=== PATIENT | female | born 1995 | race Caucasian/White ===

== ENCOUNTER → 2016-12-03 | Outpatient (CLI) | payer BC ==
[~2016-12-03] MED LIST: BUPR15TA PO; CLIN300C2 PO; CODE30TA3 PO; EFFE75CA75 PO; IBUP200C PO; LORTAB ELIXER PO; NEXP68IM SC; PERC5TAB6 PO
== END ==
LOC: M LAB 16:02
PROVIDERS: ATTEND Internal Medicine Gastroenterology
DX: K58.0 Irritable bowel syndrome with diarrhea (principal)

== ENCOUNTER 2016-12-09 10:54 | Emergency (ER) | payer BC ==
--- NOTE | 2016-12-09 12:00 | EDDOCDS ---
Physician Documentation [facility] Name: Jackie Ponce Age: 21 yrs Sex: Female : 1995 Arrival Date: 12/09/2016 Time: 10:54 Bed TR8 Private MD: Ana Laura Orlando Disposition: 12/09/16 11:51 Discharged to Home/Self Care. Impression: Encounter for issue of repeat prescription, Other idiopathic peripheral autonomic neuropathy. - Condition is Stable. - Discharge Instructions: Medicine Refill at the Emergency Department, Neuropathic Pain. - Prescriptions for Neurontin 300 mg Oral Capsule - take 1 capsule by ORAL route every 8 hours; 42 capsule. - Medication Reconciliation, Local Pharmacy Hours form. - Follow up: Private Physician; When: As previously arranged; Reason: Recheck today's complaints. - Problem is chronic. - Symptoms are unchanged. Historical: - Allergies: No known drug Allergies; - Home Meds: 1. diazepam 10 mg Oral tab 1 tab as needed (Last dose: 12/09/2016 06:30) 2. Nexium 80mg Oral cpDR 1 cap 2 times per day (Last dose: 12/09/2016 06:30) 3. Seroquel 25 mg Oral tab 1 tab nightly (Last dose: 12/06/2016) 4. topiramate 50 mg oral tab 1 tab twice a day (Last dose: 12/09/2016 06:30) 5. valacyclovir 500 mg Oral tab 1 tab once daily (Last dose: 12/08/2016) 6. gabapentin 100 mg Oral cap 3 caps 3 times per day - PMHx: Anxiety; GERD; Headaches; Herpes; - PSHx: Parathyroidectomy; Tonsillectomy; - Social history: Smoking status: Patient states was never smoker of tobacco. No barriers to communication noted, The patient speaks fluent Tamazight, Speaks appropriately for age, . - Family history: Not pertinent. - : The pt / caregiver states he / she is not on anticoagulants. Home medication list is obtained from the patient. - Exposure Risk Screening:: None identified. Vital Signs: 12/09 10:56 BP 135 / 70; Pulse 56; Resp 18; Temp 97.1(O); Pulse Ox 100% on R/A; Weight 63.5 kg / ct3 139.99 lbs (R); Height 5 ft. 3 in. (160.02 cm) (R); Pain 07/09; 10:56 Body Mass Index 24.80 (63.50 kg, 160.02 cm) ct3 MDM: 11:56 Financial registration complete. mm15 Signatures: Misael Persaud PA-C PA-C ar2 Amparo Lan RN RN hs1 Chase Lyons mm15 Maira Cortés RN RN ms18 MTDD
--- NOTE | 2016-12-09 12:00 | EDDOCDS ---
Nurse's Notes [facility] Name: Jackie Ponce Age: 21 yrs Sex: Female : 1995 Arrival Date: 12/09/2016 Time: 10:54 Bed TR8 Private MD: Ana Laura Orlando Diagnosis: Encounter for issue of repeat prescription;Other idiopathic peripheral autonomic neuropathy Presentation: 12/09 11:03 Presenting complaint: Patient states: still having nerve pain in arms and cannot get hs1 into doctor until the . Patient states she still is having pains. Patient states has pain management first appointment the and changed her medication that was prescribed here - gabapentin. Adult Sepsis Screening: The patient does not have new or worsening altered mentation. Patient's respiratory rate is less than 22. Systolic blood pressure is greater than 100. Patient has a qSOFA score of 0- Negative Sepsis Screen. Suicide/Homicide risk assessment- the patient denies having any suicidal and/or homicidal ideations and does not present with any other emotional, behavioral or mental health complaints. Status: Patient is not a automobile service advisor or dependent. Transition of care: patient was not received from another setting of care. 11:03 Acuity: KOJO Level 3 hs1 11:03 Method Of Arrival: Walkin/Carried/Asstd hs1 Triage Assessment: 11:07 General: Appears in no apparent distress, Behavior is appropriate for age, cooperative. hs1 Pain: Location: right arm Pain currently is 8 out of 10 on a pain scale. Pain: Quality of pain is described as patient states that it feels like a blood pressure cuff stuck on her arm. HIV screening NA for this visit Offered previously. Derm: Musculoskeletal: Range of motion intact in all extremities. Historical: - Allergies: No known drug Allergies; - Home Meds: 1. diazepam 10 mg Oral tab 1 tab as needed (Last dose: 12/09/2016 06:30) 2. Nexium 80mg Oral cpDR 1 cap 2 times per day (Last dose: 12/09/2016 06:30) 3. Seroquel 25 mg Oral tab 1 tab nightly (Last dose: 12/06/2016) 4. topiramate 50 mg oral tab 1 tab twice a day (Last dose: 12/09/2016 06:30) 5. valacyclovir 500 mg Oral tab 1 tab once daily (Last dose: 12/08/2016) 6. gabapentin 100 mg Oral cap 3 caps 3 times per day - PMHx: Anxiety; GERD; Headaches; Herpes; - PSHx: Parathyroidectomy; Tonsillectomy; - Social history: Smoking status: Patient states was never smoker of tobacco. No barriers to communication noted, The patient speaks fluent Urdu, Speaks appropriately for age, . - Family history: Not pertinent. - : The pt / caregiver states he / she is not on anticoagulants. Home medication list is obtained from the patient. - Exposure Risk Screening:: None identified. Screenin:09 Screening information is obtained from the patient. Fall risk: No risks identified. hs1 Assistance ADL's: requires no assistance with activities of daily living. Abuse/DV Screen: The patient / caregiver reports he/she is: not in a situation that causes fear, pain or injury. Nutritional screening: No deficits noted. Advance Directives: There is no active DNR order. home support is adequate. Assessment: 11:59 General: Appears in no apparent distress, comfortable, Behavior is appropriate for age, ms18 cooperative, pleasant. Neurological: Level of Consciousness is awake, alert, obeys commands, Oriented to person, place, time. Respiratory: No deficits noted. Derm: Skin is pink, warm & dry. Musculoskeletal: Circulation, motion, and sensation intact Range of motion intact in all extremities. No deformity noted. Vital Signs: 10:56 BP 135 / 70; Pulse 56; Resp 18; Temp 97.1(O); Pulse Ox 100% on R/A; Weight 63.5 kg (R); ct3 Height 5 ft. 3 in. (160.02 cm) (R); Pain 8/10; 10:56 Body Mass Index 24.80 (63.50 kg, 160.02 cm) ct3 Vitals: 10:56 Log In Time: December 09, 2016 at 10:53. ct3 ED Course: 10:55 Patient visited by Marizol Martinez PCA. ct3 10:55 Ana Laura Orlando is Private Physician. ct3 10:55 Patient moved to Waiting ct3 10:57 Patient moved to Pre RCE ct3 11:05 Triage Initiated hs1 11:10 Patient moved to Triage 2 hs1 11:29 [facility] ar2 11:29 Debora Hoyt MD is Attending Physician. ar2 11:39 Patient visited by Misael Persaud PA-C. ar2 11:58 Patient moved to TR8 ms18 11:59 The patient / caregiver is instructed regarding the plan of care and ED course. Patient ms18 has correct armband on for positive identification. Property sent home with patient. :Personal belongings accompany Pt. 11:59 No IV's were initiated during this patient's visit. No procedures done that require ms18 assistance. Order Results: There are currently no results for this order. Outcome: 11:51 Discharge ordered by Provider. ar2 11:59 Discharge Assessment: Patient awake, alert and oriented x 3. No cognitive and/or ms18 functional deficits noted. Patient verbalized understanding of disposition instructions. patient administered narcotics - no. The following High Risk Discharge criteria are identified: None. Discharged to home ambulatory. Condition: good Condition: stable Condition: unchanged. Discharge instructions given to patient, Instructed on discharge instructions, follow up and referral plans. medication usage, Demonstrated understanding of instructions, medications, Pt was receptive of discharge instructions/ teaching. Prescriptions given X 1. No special radiology studies were completed. 12:00 Patient left the ED. ms18 Signatures: Misael Persaud PA-C PA-C ar2 Amparo Lan RN RN hs1 Marizol Martinez, PRODUCT SALES ENGINEER PRODUCT SALES ENGINEER ct3 Maira CortésRN RN ms18 MTDD
--- NOTE | 2016-12-11 13:01 | EDDOCDS ---
Physician Documentation [facility] Name: Jackie Ponce Age: 21 yrs Sex: Female : 1995 Arrival Date: 12/09/2016 Time: 10:54 Bed TR8 Private MD: Ana Laura Orlando Disposition: 12/09/16 11:51 Discharged to Home/Self Care. Impression: Encounter for issue of repeat prescription, Other idiopathic peripheral autonomic neuropathy. - Condition is Stable. - Discharge Instructions: Medicine Refill at the Emergency Department, Neuropathic Pain. - Prescriptions for Neurontin 300 mg Oral Capsule - take 1 capsule by ORAL route every 8 hours; 42 capsule. - Medication Reconciliation, Local Pharmacy Hours form. - Follow up: Private Physician; When: As previously arranged; Reason: Recheck today's complaints. - Problem is chronic. - Symptoms are unchanged. Historical: - Allergies: No known drug Allergies; - Home Meds: 1. diazepam 10 mg Oral tab 1 tab as needed (Last dose: 12/09/2016 06:30) 2. Nexium 80mg Oral cpDR 1 cap 2 times per day (Last dose: 12/09/2016 06:30) 3. Seroquel 25 mg Oral tab 1 tab nightly (Last dose: 12/06/2016) 4. topiramate 50 mg oral tab 1 tab twice a day (Last dose: 12/09/2016 06:30) 5. valacyclovir 500 mg Oral tab 1 tab once daily (Last dose: 12/08/2016) 6. gabapentin 100 mg Oral cap 3 caps 3 times per day - PMHx: Anxiety; GERD; Headaches; Herpes; - PSHx: Parathyroidectomy; Tonsillectomy; - Social history: Smoking status: Patient states was never smoker of tobacco. No barriers to communication noted, The patient speaks fluent Macedonian, Speaks appropriately for age, . - Family history: Not pertinent. - : The pt / caregiver states he / she is not on anticoagulants. Home medication list is obtained from the patient. - Exposure Risk Screening:: None identified. Vital Signs: 12/09 10:56 BP 135 / 70; Pulse 56; Resp 18; Temp 97.1(O); Pulse Ox 100% on R/A; Weight 63.5 kg / ct3 139.99 lbs (R); Height 5 ft. 3 in. (160.02 cm) (R); Pain 07/09; 10:56 Body Mass Index 24.80 (63.50 kg, 160.02 cm) ct3 MDM: 11:56 Financial registration complete. mm15 12:40 [facility] Payment Agreement was scanned into [employer] and attached to record. mm15 14:49 T-Sheet-- Draft Copy was scanned into [employer] and attached to record. gb Signatures: Lakia Lucas, Reg Reg gb Misael Persaud PA-C PA-C ar2 Amparo Lan RN RN hs1 Chase Lyons mm15 Maira Cortés RN RN ms18 The chart was reviewed and I authenticate all verbal orders and agree with the evaluation and treatment provided.Attachments: 12:40 [facility] Payment Agreement mm15 14:49 T-Sheet-- Draft Copy gb Chart Complete MTDD
--- NOTE | 2016-12-11 13:01 | EDDOCDS ---
Nurse's Notes [facility] Name: Jackie Ponce Age: 21 yrs Sex: Female : 1995 Arrival Date: 12/09/2016 Time: 10:54 Bed TR8 Private MD: Ana Laura Orlando Diagnosis: Encounter for issue of repeat prescription;Other idiopathic peripheral autonomic neuropathy Presentation: 12/09 11:03 Presenting complaint: Patient states: still having nerve pain in arms and cannot get hs1 into doctor until the . Patient states she still is having pains. Patient states has pain management first appointment the and changed her medication that was prescribed here - gabapentin. Adult Sepsis Screening: The patient does not have new or worsening altered mentation. Patient's respiratory rate is less than 22. Systolic blood pressure is greater than 100. Patient has a qSOFA score of 0- Negative Sepsis Screen. Suicide/Homicide risk assessment- the patient denies having any suicidal and/or homicidal ideations and does not present with any other emotional, behavioral or mental health complaints. Status: Patient is not a park services specialist or dependent. Transition of care: patient was not received from another setting of care. 11:03 Acuity: KOJO Level 3 hs1 11:03 Method Of Arrival: Walkin/Carried/Asstd hs1 Triage Assessment: 11:07 General: Appears in no apparent distress, Behavior is appropriate for age, cooperative. hs1 Pain: Location: right arm Pain currently is 8 out of 10 on a pain scale. Pain: Quality of pain is described as patient states that it feels like a blood pressure cuff stuck on her arm. HIV screening NA for this visit Offered previously. Derm: Musculoskeletal: Range of motion intact in all extremities. Historical: - Allergies: No known drug Allergies; - Home Meds: 1. diazepam 10 mg Oral tab 1 tab as needed (Last dose: 12/09/2016 06:30) 2. Nexium 80mg Oral cpDR 1 cap 2 times per day (Last dose: 12/09/2016 06:30) 3. Seroquel 25 mg Oral tab 1 tab nightly (Last dose: 12/06/2016) 4. topiramate 50 mg oral tab 1 tab twice a day (Last dose: 12/09/2016 06:30) 5. valacyclovir 500 mg Oral tab 1 tab once daily (Last dose: 12/08/2016) 6. gabapentin 100 mg Oral cap 3 caps 3 times per day - PMHx: Anxiety; GERD; Headaches; Herpes; - PSHx: Parathyroidectomy; Tonsillectomy; - Social history: Smoking status: Patient states was never smoker of tobacco. No barriers to communication noted, The patient speaks fluent Upper Sorbian, Speaks appropriately for age, . - Family history: Not pertinent. - : The pt / caregiver states he / she is not on anticoagulants. Home medication list is obtained from the patient. - Exposure Risk Screening:: None identified. Screenin:09 Screening information is obtained from the patient. Fall risk: No risks identified. hs1 Assistance ADL's: requires no assistance with activities of daily living. Abuse/DV Screen: The patient / caregiver reports he/she is: not in a situation that causes fear, pain or injury. Nutritional screening: No deficits noted. Advance Directives: There is no active DNR order. home support is adequate. Assessment: 11:59 General: Appears in no apparent distress, comfortable, Behavior is appropriate for age, ms18 cooperative, pleasant. Neurological: Level of Consciousness is awake, alert, obeys commands, Oriented to person, place, time. Respiratory: No deficits noted. Derm: Skin is pink, warm & dry. Musculoskeletal: Circulation, motion, and sensation intact Range of motion intact in all extremities. No deformity noted. Vital Signs: 10:56 BP 135 / 70; Pulse 56; Resp 18; Temp 97.1(O); Pulse Ox 100% on R/A; Weight 63.5 kg (R); ct3 Height 5 ft. 3 in. (160.02 cm) (R); Pain 8/10; 10:56 Body Mass Index 24.80 (63.50 kg, 160.02 cm) ct3 Vitals: 10:56 Log In Time: December 09, 2016 at 10:53. ct3 ED Course: 10:55 Patient visited by Marizol Martinez PCA. ct3 10:55 Ana Laura Orlando is Private Physician. ct3 10:55 Patient moved to Waiting ct3 10:57 Patient moved to Pre RCE ct3 11:05 Triage Initiated hs1 11:10 Patient moved to Triage 2 hs1 11:29 [facility] ar2 11:29 Debora Hoyt MD is Attending Physician. ar2 11:39 Patient visited by Misael Persaud PA-C. ar2 11:58 Patient moved to TR8 ms18 11:59 The patient / caregiver is instructed regarding the plan of care and ED course. Patient ms18 has correct armband on for positive identification. Property sent home with patient. :Personal belongings accompany Pt. 11:59 No IV's were initiated during this patient's visit. No procedures done that require ms18 assistance. 12:40 [facility] Payment Agreement was scanned into [employer] and attached to record. mm15 14:49 T-Sheet-- Draft Copy was scanned into [employer] and attached to record. gb Order Results: There are currently no results for this order. Outcome: 11:51 Discharge ordered by Provider. ar2 11:59 Discharge Assessment: Patient awake, alert and oriented x 3. No cognitive and/or ms18 functional deficits noted. Patient verbalized understanding of disposition instructions. patient administered narcotics - no. The following High Risk Discharge criteria are identified: None. Discharged to home ambulatory. Condition: good Condition: stable Condition: unchanged. Discharge instructions given to patient, Instructed on discharge instructions, follow up and referral plans. medication usage, Demonstrated understanding of instructions, medications, Pt was receptive of discharge instructions/ teaching. Prescriptions given X 1. No special radiology studies were completed. 12:00 Patient left the ED. ms18 Signatures: Lakia Lucas, Reg Reg gb Misael Persaud PA-C PA-C ar2 Amparo Lan, RN RN hs1 Marizol Martinez, CLOTH PICKER CLOTH PICKER ct3 Chase Lyons mm15 Maira Cortés,HARDY RN ms18 Chart Complete MTDD
--- NOTE | 2016-12-11 13:01 | EDDOCDS ---
Physician Documentation [facility] Name: Jackie Ponce Age: 21 yrs Sex: Female : 1995 Arrival Date: 12/09/2016 Time: 10:54 Bed TR8 Private MD: Ana Laura Orlando Disposition: 12/09/16 11:51 Discharged to Home/Self Care. Impression: Encounter for issue of repeat prescription, Other idiopathic peripheral autonomic neuropathy. - Condition is Stable. - Discharge Instructions: Medicine Refill at the Emergency Department, Neuropathic Pain. - Prescriptions for Neurontin 300 mg Oral Capsule - take 1 capsule by ORAL route every 8 hours; 42 capsule. - Medication Reconciliation, Local Pharmacy Hours form. - Follow up: Private Physician; When: As previously arranged; Reason: Recheck today's complaints. - Problem is chronic. - Symptoms are unchanged. Historical: - Allergies: No known drug Allergies; - Home Meds: 1. diazepam 10 mg Oral tab 1 tab as needed (Last dose: 12/09/2016 06:30) 2. Nexium 80mg Oral cpDR 1 cap 2 times per day (Last dose: 12/09/2016 06:30) 3. Seroquel 25 mg Oral tab 1 tab nightly (Last dose: 12/06/2016) 4. topiramate 50 mg oral tab 1 tab twice a day (Last dose: 12/09/2016 06:30) 5. valacyclovir 500 mg Oral tab 1 tab once daily (Last dose: 12/08/2016) 6. gabapentin 100 mg Oral cap 3 caps 3 times per day - PMHx: Anxiety; GERD; Headaches; Herpes; - PSHx: Parathyroidectomy; Tonsillectomy; - Social history: Smoking status: Patient states was never smoker of tobacco. No barriers to communication noted, The patient speaks fluent Greek, Speaks appropriately for age, . - Family history: Not pertinent. - : The pt / caregiver states he / she is not on anticoagulants. Home medication list is obtained from the patient. - Exposure Risk Screening:: None identified. Vital Signs: 12/09 10:56 BP 135 / 70; Pulse 56; Resp 18; Temp 97.1(O); Pulse Ox 100% on R/A; Weight 63.5 kg / ct3 139.99 lbs (R); Height 5 ft. 3 in. (160.02 cm) (R); Pain 07/09; 10:56 Body Mass Index 24.80 (63.50 kg, 160.02 cm) ct3 MDM: 11:56 Financial registration complete. mm15 12:40 [facility] Payment Agreement was scanned into [employer]. and attached to record. mm15 14:49 T-Sheet-- Draft Copy was scanned into [employer]. and attached to record. gb Signatures: Lakia Lucas, Reg Reg gb Misael Persaud PA-C PA-C ar2 Amparo Lan RN RN hs1 Chase Lyons mm15 Maira Cortés RN RN ms18 The chart was reviewed and I authenticate all verbal orders and agree with the evaluation and treatment provided.Attachments: 12:40 [facility] Payment Agreement mm15 14:49 T-Sheet-- Draft Copy gb Chart Complete MTDD
== END 2016-12-09 12:00 | disposition home or self-care (01) ==
LOC: M ED 10:54
DX: Z76.0 Encounter for issue of repeat prescription (principal); G60.9 Hereditary and idiopathic neuropathy, unspecified; F41.9 Anxiety disorder, unspecified; K21.9 Gastro-esophageal reflux disease without esophagitis; R51 Headache; B00.9 Herpesviral infection, unspecified; Z79.899 Other long term (current) drug therapy

== ENCOUNTER → 2016-12-29 | Outpatient (CLI) | payer BC ==
[~2016-12-29] VITALS: Ht 160 cm; Wt 61.7 kg
[~2016-12-29] MED LIST changes: +ACYC1CAP8 PO; +DIAZ10TA2 PO; +GABA-283 PO; +LIDOCAINE 2% INJ 100 MG/5 ML SDV (FOR ANES.) As Ordered ONE; +NEXI40CA PO; +NS 1,000 ML IV SCH; +PROPOFOL 200 MG/20 ML VIAL As Ordered ONE; +SERO1TAB3 PO; +TOPA50TA7 PO
--- NOTE | 2016-12-29 08:14 | ROOR ---
Patient Name: Jackie Ponce Procedure Date: 12/29/2016 8:06 AM Date of : 1995 Age: 21 Room: [facility] Gender: Female Note Status: Finalized Procedure: Upper GI endoscopy Indications: Epigastric abdominal pain Providers: Tadeo FLORES MD Referring MD: ALYSSA LEPE [facility] ALYSSA Goodwin Requesting Provider: Medicines: Monitored Anesthesia Care Complications: No immediate complications. Procedure: Pre-Anesthesia Assessment: - The heart rate, respiratory rate, oxygen saturations, blood pressure, adequacy of pulmonary ventilation, and response to care were monitored throughout the procedure. The Endoscope was introduced through the mouth, and advanced to the second part of duodenum. The upper GI endoscopy was accomplished without difficulty. The patient tolerated the procedure well. Findings: The esophagus was normal. The stomach was normal. The examined duodenum was normal. Impression: - Normal esophagus. - Normal stomach. - Normal examined duodenum. - No specimens collected. Recommendation: - Continue present medications. Tadeo Flores MD Tadeo FLORES MD 12/29/2016 8:13:52 AM This report has been signed electronically. Number of Addenda: 0 Note Initiated On: 12/29/2016 8:06 AM Estimated Blood Loss: Estimated blood loss: none.
--- NOTE | 2016-12-29 08:22 | ROOR ---
Patient Name: Jackie Ponce Procedure Date: 12/29/2016 8:07 AM Date of : 1995 Age: 21 Room: OP02 Gender: Female Note Status: Finalized Procedure: Colonoscopy Indications: Generalized abdominal pain, Irritable bowel syndrome with constipation Providers: Tadeo ELMORE MD Referring [facility] Provider: Medicines: Monitored Anesthesia Care Complications: No immediate complications. Procedure: Pre-Anesthesia Assessment: - The heart rate, respiratory rate, oxygen saturations, blood pressure, adequacy of pulmonary ventilation, and response to care were monitored throughout the procedure. The Colonoscope was introduced through the anus and advanced to 7 cm into the ileum. The colonoscopy was performed without difficulty. The patient tolerated the procedure well. The quality of the bowel preparation was good. Findings: The perianal and digital rectal examinations were normal. (Exam: Complete, Prep: Good or Excellent.) The terminal ileum appeared normal. The entire examined colon appeared normal on direct and retroflexion views. Impression: - (Exam: Complete, Prep: Good or Excellent.) - The examined portion of the ileum was normal. - The entire colon is normal on direct and retroflexion views. - No specimens collected. Recommendation: - Continue present medications. - Lactose free diet. Tadeo Elmore MD Tadeo ELMORE MD 12/29/2016 8:22:13 AM This report has been signed electronically. Number of Addenda: 0 Note Initiated On: 12/29/2016 8:07 AM Estimated Blood Loss: Estimated blood loss: none.
[2016-12-29 08:40] VITALS: BP 132/74
== END ==
LOC: M OPP 07:23
PROVIDERS: ATTEND Internal Medicine Gastroenterology
DX: R10.84 Generalized abdominal pain (principal); K58.1 Irritable bowel syndrome with constipation; R10.13 Epigastric pain; R12 Heartburn; F41.9 Anxiety disorder, unspecified; F32.9 Major depressive disorder, single episode, unspecified; G43.909 Migraine, unspecified, not intractable, without status migrainosus; E21.5 Disorder of parathyroid gland, unspecified; G62.9 Polyneuropathy, unspecified; G90.511 Complex regional pain syndrome I of right upper limb; K59.00 Constipation, unspecified; R19.7 Diarrhea, unspecified; Z91.030 Bee allergy status; Z79.899 Other long term (current) drug therapy

== ENCOUNTER → 2017-01-18 | Outpatient (REF) | payer BC ==
[~2017-01-18] MED LIST changes: -LIDOCAINE 2% INJ 100 MG/5 ML SDV (FOR ANES.) As Ordered ONE; -NS 1,000 ML IV SCH; -PROPOFOL 200 MG/20 ML VIAL As Ordered ONE
== END ==
LOC: M LAB REF 09:46
PROVIDERS: ATTEND Physician Assistant
DX: N39.0 Urinary tract infection, site not specified (principal)

== ENCOUNTER → 2017-01-29 | Outpatient (REF) | payer BC | LOC: M SFHCLERA 15:37 | PROVIDERS: ATTEND Nurse Practitioner Family | DX: J02.9 Acute pharyngitis, unspecified (principal) ==

== ENCOUNTER → 2017-02-09 | Outpatient (CLI) | payer BC ==
[2017-02-09 15:08] LABS: BASO % 0.4 % (0.0-1.0); EOS # 0.3 K/mm3 (0.0-0.50); EOS % 3.3 % (0.0-3.0); LARGE UNSTAINED CELL # 0.1 K/mm3 (0.0-0.4); LARGE UNSTAINED CELL % 0.9 % (0.0-4.0); LYMPH # 2.3 K/mm3 (1.5-6.5); LYMPH % 22.8 % (24.0-44.0); MEAN CORPUSCULAR HEMOGLOBIN 30.4 pg (27.0-33.0); MEAN CORPUSCULAR HGB CONC 34.4 g/dl (32.0-36.5); MEAN CORPUSCULAR VOLUME 88.2 fl (80.0-96.0); MONO # 0.4 K/mm3 (0.0-0.8); MONO % 4.2 % (0.0-5.0); NEUTROPHILS # 6.5 K/mm3 (1.8-7.7); NEUTROPHILS % 68.3 % (36.0-66.0); PLATELET COUNT, AUTOMATED 224 k/mm3 (150-450); RED CELL DISTRIBUTION WIDTH 12.7 % (11.5-14.5); WHITE BLOOD COUNT 9.5 K/mm3 (4.0-10.0)
[2017-02-09 15:43] LABS: ALBUMIN 3.8 GM/DL (3.2-5.2); ALBUMIN/GLOBULIN RATIO 1.23 (1.00-1.93); ALKALINE PHOSPHATASE 66 U/L (45-117); ALT/SGPT 23 U/L (12-78); ANION GAP 9 MEQ/L (8-16); AST/SGOT 14 U/L (15-37); BILIRUBIN,TOTAL 0.3 MG/DL (0.2-1.0); BLOOD UREA NITROGEN 10 MG/DL (7-18); CALCIUM LEVEL 8.8 MG/DL (8.5-10.1); CARBON DIOXIDE LEVEL 27 MEQ/L (21-32); CHLORIDE LEVEL 108 MEQ/L (98-107); FREE T4 0.77 NG/DL (0.76-1.46); GLOMERULAR FILTRATION RATE > 60.0 (>60); GLUCOSE, FASTING 79 MG/DL (70-105); POTASSIUM SERUM 4.1 MEQ/L (3.5-5.1); SODIUM LEVEL 144 MEQ/L (136-145); TOTAL PROTEIN 6.9 GM/DL (6.4-8.2)
== END ==
LOC: M LAB 14:37
PROVIDERS: ATTEND Physician Assistant
DX: R53.83 Other fatigue (principal)

== ENCOUNTER → 2017-03-01 | Outpatient (CLI) | payer BC ==
[~2017-03-01] MED LIST changes: +NEXP1IMP SC; -NEXP68IM SC
--- NOTE | 2017-03-01 16:57 | REP ---
Clinical: Trauma. Injury. Technique: Neutral and frog lateral views of the right hip. Findings: No acute fracture dislocation. Skeletal structures, joint spaces, and surrounding soft tissues are essentially normal for age. Impression: No acute fracture or dislocation. Signed by Rito Antonio MD 03/01/2017 04:49 P
== END ==
LOC: M LRY 16:12
PROVIDERS: ATTEND Physician Assistant
DX: S79.911A Unspecified injury of right hip, initial encounter (principal); X58.XXXA Exposure to other specified factors, initial encounter; Y92.89 Other specified places as the place of occurrence of the external cause; Y93.89 Activity, other specified; Y99.8 Other external cause status

== ENCOUNTER → 2017-05-12 | Outpatient (REF) | payer BC | LOC: M LAB REF 17:22 | PROVIDERS: ATTEND Physician Assistant | DX: N39.0 Urinary tract infection, site not specified (principal) ==

== ENCOUNTER → 2017-06-18 | Outpatient (CLI) | payer BC ==
[~2017-06-18] MED LIST changes: -ACYC1CAP8 PO; +ACYC200C8 PO; +BUPR150T3 PO; +DIAZ1CON PO; +HYDR2.5C TOP; -IBUP200C PO; +IBUP200C10 PO; +MOBI4TAB PO; +NUVAMIS2 EC; +PERC5TAB12 PO; -PERC5TAB6 PO; +PRED10TA2 PO; -TOPA50TA7 PO; +TOPA50TA8 PO; +ZOFR4TAB3 PO
--- NOTE | 2017-06-18 15:28 | REP ---
Focused right breast sonography: History: Right breast mass at 12 o'clock. Findings: Scanning of the right breast is performed from 11 o'clock to 1 o'clock. Heterogeneous fibroglandular background echotexture is seen. No cyst or mass is observed. No other finding. Impression: BIRADS category 1 negative focused right breast sonography. No change from prior study done December 2014. Clinical follow-up is advised. Signed by Olegario Granados MD 06/18/2017 04:42 P
== END ==
LOC: M RAD 14:11
PROVIDERS: ATTEND Physician Assistant Medical
DX: D48.61 Neoplasm of uncertain behavior of right breast (principal)

== ENCOUNTER → 2017-08-01 | Outpatient (REF) | payer BC | LOC: M LAB REF 17:19 | PROVIDERS: ATTEND Physician Assistant | DX: S80.862A Insect bite (nonvenomous), left lower leg, initial encounter (principal); W57.XXXA Bitten or stung by nonvenomous insect and other nonvenomous arthropods, initial encounter; Y92.89 Other specified places as the place of occurrence of the external cause; Y93.89 Activity, other specified; Y99.8 Other external cause status ==

== ENCOUNTER → 2017-08-03 | Outpatient (CLI) | payer BC ==
[2017-08-03 12:19] LABS: BASO % 0.1 % (0.0-1.0); EOS % 0.1 % (0.0-3.0); LARGE UNSTAINED CELL % 0.3 % (0.0-4.0); LYMPH # 1.5 K/mm3 (1.5-6.5); LYMPH % 11.2 % (24.0-44.0); MEAN CORPUSCULAR HEMOGLOBIN 31.4 pg (27.0-33.0); MEAN CORPUSCULAR HGB CONC 35.1 g/dl (32.0-36.5); MEAN CORPUSCULAR VOLUME 89.4 fl (80.0-96.0); MONO # 0.5 K/mm3 (0.0-0.8); MONO % 3.6 % (0.0-5.0); NEUTROPHILS # 10.6 K/mm3 (1.8-7.7); NEUTROPHILS % 84.7 % (36.0-66.0); PLATELET COUNT, AUTOMATED 238 k/mm3 (150-450); WHITE BLOOD COUNT 12.5 K/mm3 (4.0-10.0)
[2017-08-03 12:45] LABS: ERYTHROCYTE SEDIMENTATION RATE 1 mm/hr (0-20)
== END ==
LOC: M WUC 11:01
PROVIDERS: ATTEND Physician Assistant
DX: S80.862A Insect bite (nonvenomous), left lower leg, initial encounter (principal); W57.XXXA Bitten or stung by nonvenomous insect and other nonvenomous arthropods, initial encounter; Y92.89 Other specified places as the place of occurrence of the external cause; Y93.89 Activity, other specified; Y99.8 Other external cause status

== ENCOUNTER 2017-08-11 05:51 | Emergency (ER) | payer BC ==
[~2017-08-11] VITALS: Ht 160 cm; Wt 68.2 kg
[~2017-08-11 05:51] MED LIST changes: -BUPR150T3 PO; -DIAZ1CON PO; -HYDR2.5C TOP; -MOBI4TAB PO; -NUVAMIS2 EC; -PRED10TA2 PO; -ZOFR4TAB3 PO
[2017-08-11] MEDS ORDERED: NUVAMIS2 EC (06:08)
[2017-08-11] MEDS ORDERED: DIAZ1CON PO (06:08)
[2017-08-11] MEDS ORDERED: BUPR150T3 PO (06:08)
[2017-08-11] MEDS ORDERED: PRED10TA2 PO (06:08)
[2017-08-11] MEDS ORDERED: HYDR2.5C TOP (06:08)
[2017-08-11] MEDS ORDERED: KETOROLAC 60 MG/2 ML VIAL (J1885) IM ONE (07:30)
[2017-08-11] MEDS ORDERED: ONDANSETRON 4 MG ORAL DISINTEGRATING TAB (S0181) PO ONE (07:30)
--- NOTE | 2017-08-11 08:51 | REP ---
Clinical: Right upper extremity pain . Technique: Fermin scale and color Doppler evaluation using linear high frequency transducer. Findings: Ultrasound examination of the right upper extremity deep venous structures including the jugular, subclavian, axillary, brachial, basilic, and cephalic veins demonstrates normal flow and wave patterns in response to respiration and augmentation. There is no evidence for deep venous thrombosis. Impression: No evidence for deep venous thrombosis. Signed by Rito Antonio MD 08/11/2017 08:43 A
[2017-08-11] MEDS ORDERED: MOBI4TAB PO (08:55)
[2017-08-11] MEDS ORDERED: ZOFR4TAB3 PO (08:55)
[2017-08-11 09:00] VITALS: BP 136/72
== END 2017-08-11 09:02 | disposition home or self-care (01) ==
LOC: M ED 05:51
DX: G89.29 Other chronic pain (principal); M79.601 Pain in right arm; K21.9 Gastro-esophageal reflux disease without esophagitis; M54.9 Dorsalgia, unspecified; F41.9 Anxiety disorder, unspecified; F32.9 Major depressive disorder, single episode, unspecified; G90.50 Complex regional pain syndrome I, unspecified; Z79.3 Long term (current) use of hormonal contraceptives; Z79.899 Other long term (current) drug therapy; Z91.030 Bee allergy status
CPT/HCPCS: 93971; 96372; 99283; J1885

== ENCOUNTER → 2018-02-01 | Outpatient (CLI) | payer BC ==
[2018-02-01 09:03] LABS: BASO # 0.1 10^3/uL (0.0-0.2); BASO % 0.9 % (0.0-1.0); EOS # 0.2 10^3/uL (0.0-0.50); HEMATOCRIT 46.4 % (36.0-47.0); HEMOGLOBIN 16.2 g/dl (12.0-16.0); IMMATURE GRANULOCYTE % 0.5 % (0-3.0); LYMPH # 2.8 10^3/uL (1.5-6.5); LYMPH % 36.6 % (24.0-44.0); MEAN CORPUSCULAR HEMOGLOBIN 30.3 pg (27.0-33.0); MEAN CORPUSCULAR HGB CONC 34.9 g/dl (32.0-36.5); MEAN CORPUSCULAR VOLUME 86.7 fl (80.0-96.0); MONO # 0.5 10^3/uL (0.0-0.8); MONO % 6.6 % (0.0-5.0); NEUTROPHILS % 52.4 % (36.0-66.0); PLATELET COUNT, AUTOMATED 211 10^3/uL (150-450); RED BLOOD COUNT 5.35 10^6/uL (4.00-5.40); RED CELL DISTRIBUTION WIDTH 11.8 % (11.5-14.5); WHITE BLOOD COUNT 7.7 10^3/uL (4.0-10.0)
[2018-02-01 09:54] LABS: ALBUMIN 4.4 GM/DL (3.2-5.2); ALBUMIN/GLOBULIN RATIO 1.42 (1.00-1.93); ALKALINE PHOSPHATASE 54 U/L (45-117); ALT/SGPT 21 U/L (12-78); ANION GAP 4 MEQ/L (8-16); AST/SGOT 8 U/L (7-37); BILIRUBIN,TOTAL 0.4 MG/DL (0.2-1.0); BLOOD UREA NITROGEN 9 MG/DL (7-18); CALCIUM LEVEL 9.3 MG/DL (8.5-10.1); CARBON DIOXIDE LEVEL 29 MEQ/L (21-32); CHLORIDE LEVEL 109 MEQ/L (98-107); CREATININE FOR GFR 0.81 MG/DL (0.55-1.30); FREE T4 1.05 NG/DL (0.76-1.46); GLOMERULAR FILTRATION RATE > 60.0 (>60); GLUCOSE, FASTING 93 MG/DL (70-100); SODIUM LEVEL 142 MEQ/L (136-145); THYROID STIMULATING HORMONE 0.505 uIU/ML (0.358-3.740); TOTAL PROTEIN 7.5 GM/DL (6.4-8.2)
[2018-02-01 09:59] LABS: POTASSIUM SERUM 5.6 MEQ/L (3.5-5.1)
== END ==
LOC: M LAB 08:43
DX: R10.11 Right upper quadrant pain (principal); F45.8 Other somatoform disorders
CPT/HCPCS: 84443

== ENCOUNTER → 2018-03-01 | Outpatient (CLI) | payer BC | LOC: M RAD 08:43 | DX: R10.11 Right upper quadrant pain (principal) | CPT/HCPCS: J2805 ==

== ENCOUNTER 2018-10-03 11:09 | Emergency (ER) | payer OTHER, BC ==
[2018-10-03] MEDS: KETOROLAC 60 MG/2 ML VIAL (J1885) IM (11:54)
== END 2018-10-03 13:05 | disposition home or self-care (01) ==
LOC: M ED 11:09
DX: G90.511 Complex regional pain syndrome I of right upper limb (principal); F99 Mental disorder, not otherwise specified; Z91.030 Bee allergy status; Z79.899 Other long term (current) drug therapy
CPT/HCPCS: J1885

== ENCOUNTER → 2018-12-09 | Outpatient (CLI) | payer BC ==
[~2018-12-09] MED LIST changes: +BUPR150T3 PO; +DIAZ1CON PO; +E-Z-GAS II EFFERVESCENT PACKET (SODIUM BICARB./CITRIC ACID/SIMETHICONE) As Ordered ONE; +E-Z-HD 98% w/w 340GM SUSP BTL As Ordered ONE; +E-Z-PAQUE 96% w/w SUSP 176GM BTL As Ordered ONE; +EFFE75CA2 PO; -EFFE75CA75 PO; -GABA-283 PO; +GABA-845 PO; +GABA800T4; +HYDR-3713 PO; +HYDR2.5C TOP; -IBUP200C10 PO; +IBUP200C25 PO; +MOBI4TAB PO; +NEUR800T PO; +NUVAMIS2 EC; +PRED10TA2 PO; +VALA-3; +ZOFR4TAB14 PO
--- NOTE | 2018-12-09 16:38 | REP ---
THERE CONTRAST UPPER GI AND ESOPHAGRAM The procedure was performed under the direct supervision of Dr. Granados. The images were reviewed with Dr. Granados. Master Rigger film shows no organomegaly or pathological masses. The test gas pattern is nonspecific. There is levoscoliosis. Single view PA chest x-ray is submitted as a bee worker film. The superior mediastinal structures are midline. Heart size within normal limits. Lungs are clear. There is dextroscoliosis of the thoracic spine. Liquid barium and gas producing granules and given in the erect position as well as liquid barium in the prone oblique position in order to perform a double contrast upper GI and esophagram examination. The oral and pharyngeal stages of deglutition are unremarkable. Esophageal transport is prompt and efficient and there is no esophagitis stricture or mucosal ring. Is a sliding-type hiatal hernia present. Gastroesophageal reflux is not demonstrated on this examination. The stomach steve are normally aligned. The rugal folds are smooth and regular. There is no gastritis neoplasm or ulcer disease. The duodenal steve are normally aligned. The mucosal folds are smooth and regular. There is no duodenitis pancreatitis peptic ulcer disease or neoplasm. The visualized portion of the proximal small bowel appears normal in course and caliber. Impression: There is a small sliding-type hiatal hernia present otherwise unremarkable double contrast upper GI and esophagram examination. 1.5 minutes of fluoroscopy time was utilized for this procedure. Reviewed by MELISSA Calvo 12/09/2018 04:07 P Electronically Signed by Olegario Granados MD 12/09/2018 04:28 P
--- NOTE | 2018-12-10 05:02 | REP ---
Clinical: Nontoxic goiter. Technique: Real time ricks scale and color evaluation using linear high frequency transducer. Comparison: 04/01/2016. Findings: Thyroid gland is relatively normal in contour, size, echogenicity. Isthmus measures 2.1 mm in width. Right lobe measures 5.2 x 1.6 x 1.4 cm without obvious abnormality. Left lobe measures 4.4 x 1.6 x 1.8 cm and includes 7 x 5 x 6 mm isoechoic and 9 x 6 x 5 mm upper pole hypoechoic nodules and 3 mm mid pole simple cyst. Impression: Two nonspecific nodules in the upper pole which are minimally increased in size when compared to prior examination. Electronically Signed by Rito Antonio MD 12/10/2018 04:53 A
== END ==
LOC: M RAD 10:36
PROVIDERS: ATTEND Family Medicine
DX: K44.9 Diaphragmatic hernia without obstruction or gangrene (principal); R13.10 Dysphagia, unspecified; E04.1 Nontoxic single thyroid nodule

== ENCOUNTER → 2019-01-09 | Outpatient (CLI) | payer BC ==
[~2019-01-09] MED LIST changes: -E-Z-GAS II EFFERVESCENT PACKET (SODIUM BICARB./CITRIC ACID/SIMETHICONE) As Ordered ONE; -E-Z-HD 98% w/w 340GM SUSP BTL As Ordered ONE; -E-Z-PAQUE 96% w/w SUSP 176GM BTL As Ordered ONE
--- NOTE | 2019-01-10 10:26 | REP ---
LEFT KNEE, FIVE VIEWS: There is no evidence of an acute fracture, dislocation or intrinsic bone disease. IMPRESSION: No fracture or dislocation. Electronically Signed by Wood Fermin MD 01/10/2019 10:48 P
== END ==
LOC: M WUC 09:31
PROVIDERS: ATTEND Physician Assistant
DX: S83.422A Sprain of lateral collateral ligament of left knee, initial encounter (principal); X58.XXXA Exposure to other specified factors, initial encounter; Y92.9 Unspecified place or not applicable

== ENCOUNTER → 2019-04-15 | Outpatient (REF) | payer BC ==
[~2019-04-15] MED LIST changes: +ACET300T47 PO; -CODE30TA3 PO
[2019-04-15 15:35] LABS: CHLAMYDIA DNA AMPLIFICATION NEGATIVE (NEGATIVE); GC DNA AMPLIFICATION NEGATIVE (NEGATIVE)
== END ==
LOC: M LAB REF 13:05
PROVIDERS: ATTEND Physician Assistant
DX: R30.0 Dysuria (principal)

== ENCOUNTER → 2019-04-15 | Outpatient (CLI) | payer BC ==
[2019-04-15 13:42] LABS: HIV 1&2 SCREEN CENTAUR NEGATIVE (NEGATIVE)
[2019-04-17 00:06] LABS: HSV IgM TYPES 1&2 <0.91 Ratio (0.00-0.90)
== END ==
LOC: M WUC 09:22
PROVIDERS: ATTEND Physician Assistant
DX: R30.0 Dysuria (principal); Z20.2 Contact with and (suspected) exposure to infections with a predominantly sexual mode of transmission

== ENCOUNTER → 2019-07-21 | Outpatient (CLI) | payer BC ==
--- NOTE | 2019-07-21 10:41 | REP ---
Hepatobiliary scan and gallbladder ejection fraction: History: Nausea. Technique: 6.4 mCi of technetium-99m mebrofenin was injected and sequential anterior images are acquired. 65 minutes after the mebrofenin injection, the patient consumed 8 ounces Ensure and an additional 60 minutes of imaging was acquired. Regions of interest are plotted around the gallbladder. Findings: The initial hepatocellular parenchymal uptake phase is normal and homogeneous. Intra- and extra-hepatic bile ducts are labeled by the 10 -minute image. The gallbladder is first labeled on the 10 -minute image. There is normal washout from the liver parenchyma into the gallbladder and small intestine on subsequent images. The gallbladder ejection fraction is 77 %. Values greater than 35 % are considered normal with this technique. Impression: Normal hepatobiliary scan and normal gallbladder ejection fraction. Electronically Signed by Olegario Granados MD 07/21/2019 10:32 A
== END ==
LOC: M RAD 07:45
PROVIDERS: ATTEND Physician Assistant
DX: R11.0 Nausea (principal)
CPT/HCPCS: 78227; A9537; J2805

== ENCOUNTER → 2019-08-11 | Outpatient (CLI) | payer BC | LOC: M WUC 16:17 | PROVIDERS: ATTEND Physician Assistant | DX: R39.15 Urgency of urination (principal) ==

== ENCOUNTER → 2019-08-22 | Outpatient (CLI) | payer BC ==
--- NOTE | 2019-08-23 03:57 | REP ---
Clinical: Acute bronchitis . Comparison: None . Technique: PA and lateral. Findings: The mediastinum and cardiac silhouette are normal. The lung waters are clear and without acute consolidation, effusion, or pneumothorax. The skeletal structures are intact and normal. Impression: 1. No acute cardiopulmonary process. Electronically Signed by Rito Antonio MD 08/23/2019 03:49 A
== END ==
LOC: M RAD 11:25
PROVIDERS: ATTEND Physician Assistant
DX: J20.9 Acute bronchitis, unspecified (principal)

== ENCOUNTER → 2019-09-27 | Outpatient (CLI) | payer BC | LOC: M LAB 14:38 | PROVIDERS: ATTEND Advanced Practice Midwife | DX: O20.0 Threatened abortion (principal); Z3A.00 Weeks of gestation of pregnancy not specified ==

== ENCOUNTER → 2019-09-29 | Outpatient (CLI) | payer BC | LOC: M LAB 13:18 | PROVIDERS: ATTEND Advanced Practice Midwife | DX: O20.0 Threatened abortion (principal); Z3A.00 Weeks of gestation of pregnancy not specified ==

== ENCOUNTER → 2019-10-26 | Outpatient (CLI) | payer BC ==
[2019-10-26 17:36] LABS: BASO # 0.1 10^3/uL (0.0-0.2); BASO % 0.5 % (0.0-1.0); EOS % 0.1 % (0.0-3.0); HEMATOCRIT 43.6 % (36.0-47.0); HEMOGLOBIN 14.7 g/dl (12.0-15.5); LYMPH # 2.2 10^3/uL (1.5-5.0); LYMPH % 15.4 % (24.0-44.0); MEAN CORPUSCULAR HEMOGLOBIN 30.9 pg (27.0-33.0); MEAN CORPUSCULAR HGB CONC 33.7 g/dl (32.0-36.5); MEAN CORPUSCULAR VOLUME 91.8 fl (80.0-96.0); MONO # 0.6 10^3/uL (0.0-0.8); MONO % 3.8 % (0.0-5.0); NEUTROPHILS # 11.4 10^3/uL (1.5-8.5); NEUTROPHILS % 78.5 % (36.0-66.0); PLATELET COUNT, AUTOMATED 257 10^3/uL (150-450); RED BLOOD COUNT 4.75 10^6/uL (4.00-5.40); WHITE BLOOD COUNT 14.5 10^3/uL (4.0-10.0)
[2019-10-26 19:51] LABS: CHLAMYDIA DNA AMPLIFICATION NEGATIVE (NEGATIVE); GC DNA AMPLIFICATION NEGATIVE (NEGATIVE)
[2019-10-28 10:40] LABS: HEPATITIS C VIRUS ABY INDEX 0.1 INDEX (<0.8); HIV 1&2 SCREEN CENTAUR NEGATIVE (NEGATIVE); RUBELLA IgG QUALITATIVE IMMUNE (IMMUNE)
== END ==
LOC: M PLALAB 12:52
PROVIDERS: ATTEND Advanced Practice Midwife
DX: Z34.81 Encounter for supervision of other normal pregnancy, first trimester (principal); Z3A.00 Weeks of gestation of pregnancy not specified

== ENCOUNTER → 2020-04-18 | Outpatient (REF) | payer BC | LOC: M PLALAB 11:01 | PROVIDERS: ATTEND Obstetrics & Gynecology | DX: O36.80X0 Pregnancy with inconclusive fetal viability, not applicable or unspecified (principal) ==

== ENCOUNTER → 2020-06-28 | Outpatient (REF) | payer BC | LOC: M SFHCLUC 12:12 | PROVIDERS: ATTEND Physician Assistant | DX: R35.0 Frequency of micturition (principal); Z32.00 Encounter for pregnancy test, result unknown ==

== ENCOUNTER → 2020-07-26 | Outpatient (REF) | payer BC | LOC: M LAB REF 18:01 | PROVIDERS: ATTEND Physician Assistant | DX: N39.0 Urinary tract infection, site not specified (principal) ==

== ENCOUNTER → 2020-08-08 | Outpatient (REF) | payer BC | LOC: M SFHCWAGY 13:15 | PROVIDERS: ATTEND Advanced Practice Midwife | DX: Z34.81 Encounter for supervision of other normal pregnancy, first trimester (principal); Z3A.00 Weeks of gestation of pregnancy not specified ==

== ENCOUNTER → 2020-10-02 | Outpatient (CLI) | payer BC ==
--- NOTE | 2020-10-03 11:48 | REP ---
INDICATION: ANATOMY. COMPARISON: None. TECHNIQUE: Real-time sonographic evaluation of the gravid uterus performed. FINDINGS: Estimated gestational age is20 weeks 1 day, EDC 02/19/2021. Today's measurements indicate appropriate growth. Presentation: Transverse, head maternal left side. Placenta posterior, grade 0, without evidence of placenta previa. There appears to be an anterior succenturiate lobe. heart rate is recorded at 161 beats per minute. Amniotic fluid is subjectively normal. Closed cervical length is measured at 3.6 cm. Biometry chart: BPD: 47 mm, 20 weeks 1 days, 50th percentile. HC: 175 mm, 20 weeks 0 days, 48th percentile AC: 154 mm, 20 weeks 4 days, 61st percentile Femur length: 33 mm, 20 weeks 1 days, 51st percentile HC to AC ratio: 1.14, normal range 1.06-1.24. Estimated weight: 348g, 60th percentile. anatomy: Cranium: Grossly normal Lateral Ventricles/Choroid Plexus: Grossly normal Posterior Fossa/Cerebellum: Grossly normal Nose/lips/profile: Grossly normal Four chamber heart: Grossly normal Right ventricular outflow tract: Grossly normal Left ventricular outflow tract: Grossly normal Left-sided stomach: Grossly normal Kidneys: Grossly normal Bladder: Grossly normal Cord Insertion: Grossly normal 3 vessel cord: Grossly normal Spine: Grossly normal IMPRESSION: Viable single intrauterine gestation as above. <Electronically signed by Wood Fermin > 10/03/20 [id number]
== END ==
LOC: M WHC 13:58
PROVIDERS: ATTEND Obstetrics & Gynecology
DX: Z36.89 Encounter for other specified antenatal screening (principal); Z3A.20 20 weeks gestation of pregnancy; O32.2XX0 Maternal care for transverse and oblique lie, not applicable or unspecified

== ENCOUNTER → 2020-11-06 | Outpatient (REF) | payer BC | LOC: M PLALAB 10:23 | PROVIDERS: ATTEND Obstetrics & Gynecology | DX: Z3A.25 25 weeks gestation of pregnancy (principal) ==

== ENCOUNTER → 2020-11-22 | Outpatient (CLI) | payer BC ==
[2020-11-22 13:57] LABS: HEMATOCRIT 37.3 % (36.0-47.0); HEMOGLOBIN 12.5 g/dl (12.0-15.5); MEAN CORPUSCULAR HEMOGLOBIN 30.6 pg (27.0-33.0); MEAN CORPUSCULAR HGB CONC 33.5 g/dl (32.0-36.5); MEAN CORPUSCULAR VOLUME 91.2 fl (80.0-96.0); PLATELET COUNT, AUTOMATED 177 10^3/uL (150-450); RED BLOOD COUNT 4.09 10^6/uL (4.00-5.40); WHITE BLOOD COUNT 7.5 10^3/uL (4.0-10.0)
== END ==
LOC: M WUC 08:48
PROVIDERS: ATTEND Obstetrics & Gynecology
DX: Z34.82 Encounter for supervision of other normal pregnancy, second trimester (principal); Z3A.25 25 weeks gestation of pregnancy
CPT/HCPCS: 36415; 82950; 85027; 86850; 86900; 86901; J2790

== ENCOUNTER 2020-12-24 07:16 | Emergency (ER) | payer BC ==
[~2020-12-24] VITALS: Ht 160 cm; Wt 72.6 kg
[~2020-12-24 07:16] MED LIST changes: -BUPR150T3 PO; +BUPR150T4 PO
[2020-12-24] MEDS ORDERED: PRENTAB9 PO (07:30)
[2020-12-24 08:16] LABS: BASO % 0.4 % (0.0-1.0); EOS # 0.1 10^3/uL (0.0-0.5); EOS % 1.3 % (0.0-3.0); HEMATOCRIT 38.2 % (36.0-47.0); HEMOGLOBIN 12.6 g/dl (12.0-15.5); LYMPH # 1.4 10^3/uL (1.5-5.0); LYMPH % 15.4 % (24.0-44.0); MEAN CORPUSCULAR HEMOGLOBIN 29.7 pg (27.0-33.0); MEAN CORPUSCULAR VOLUME 90.1 fl (80.0-96.0); MONO # 0.5 10^3/uL (0.0-0.8); MONO % 5.7 % (0.0-5.0); NEUTROPHILS # 7.1 10^3/uL (1.5-8.5); NEUTROPHILS % 75.9 % (36.0-66.0); PLATELET COUNT, AUTOMATED 193 10^3/uL (150-450); RED BLOOD COUNT 4.24 10^6/uL (4.00-5.40); WHITE BLOOD COUNT 9.3 10^3/uL (4.0-10.0)
[2020-12-24 08:39] LABS: ALT/SGPT 34 U/L (12-78); BILIRUBIN,DIRECT < 0.1 MG/DL (0.0-0.2); BILIRUBIN,TOTAL 0.1 MG/DL (0.2-1.0); BLOOD UREA NITROGEN 7 MG/DL (7-18); CALCIUM LEVEL 8.9 MG/DL (8.5-10.1); CARBON DIOXIDE LEVEL 23 MEQ/L (21-32); CHLORIDE LEVEL 107 MEQ/L (98-107); CREATININE FOR GFR 0.59 MG/DL (0.55-1.30); GLOMERULAR FILTRATION RATE > 60.0 (>60); GLUCOSE, FASTING 95 MG/DL (70-100); POTASSIUM SERUM 4.3 MEQ/L (3.5-5.1); SODIUM LEVEL 141 MEQ/L (136-145); TOTAL PROTEIN 6.6 GM/DL (6.4-8.2)
[2020-12-24 09:01] LABS: THYROID STIMULATING HORMONE 0.805 uIU/ML (0.358-3.740)
[2020-12-24 09:16] VITALS: BP 118/72
--- NOTE | 2020-12-26 14:19 | ECGEPIP ---
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
== END 2020-12-24 09:39 | disposition home or self-care (01) ==
LOC: M ED 07:16
DX: O99.343 Other mental disorders complicating pregnancy, third trimester (principal); F41.1 Generalized anxiety disorder; Z79.899 Other long term (current) drug therapy

== ENCOUNTER → 2021-01-22 | Outpatient (REF) | payer BC ==
[~2021-01-22] MED LIST changes: +PRENTAB9 PO
== END ==
LOC: M PLALAB 08:36
PROVIDERS: ATTEND Obstetrics & Gynecology
DX: Z3A.36 36 weeks gestation of pregnancy (principal)

== ENCOUNTER → 2021-01-29 | Outpatient (CLI) | payer BC ==
[~2021-01-29] MED LIST changes: +BUPR150T12 PO; -BUPR150T4 PO
--- NOTE | 2021-01-29 13:21 | REP ---
INDICATION: UTERINE SIZE-DATE DISCREPANCY,GROWTH COMPARISON: 10/02/2020 TECHNIQUE: Transabdominal obstetrical ultrasound with color Doppler evaluation. FINDINGS: Examination demonstrates a single live intrauterine in cephalic presentation. motion is identified by technologist. Placenta is noted posterior and grade 2 without evidence for placenta previa or abruption. Amniotic fluid volume is normal. Cervix measures 3.1 cm in length and appears closed. LEANDRA: 9.6 cm (7.5-24.4). Gestational age by LMP and 1st ultrasound 37 weeks 1 day with LUIS 02/18/2021. Gestational age by current measurements 35 weeks 5 days with LUIS 02/28/2021. FHR equals 124 beats per minute. BPD: 9.0 cm at 36 weeks 3 days HC: 31.9 cm at 36 weeks 0 days AC: 31.9 cm at 35 weeks 6 days FL: 6.8 cm at 35 weeks 0 days HL: 6.1 cm at 35 weeks 3 days HC/AC: 1.00 Estimated weight 2745 grams (22ndpercentile). IMPRESSION: Single live advanced gestation in cephalic presentation. Estimated weight and growth is within normal range. <Electronically signed by Rito Antonio > 01/29/21 1927
== END ==
LOC: M WHC 12:27
PROVIDERS: ATTEND Obstetrics & Gynecology
DX: O26.843 Uterine size-date discrepancy, third trimester (principal); Z3A.37 37 weeks gestation of pregnancy

== ENCOUNTER 2021-02-06 05:31 | Inpatient (IN) | payer BC ==
[2021-02-06] VITALS (41 sets, daily range): BP systolic 89–144; BP diastolic 51–94
[~2021-02-06] VITALS: Ht 160 cm; Wt 73.1 kg
[2021-02-06] MEDS ORDERED: VALT500T PO (06:14)
[2021-02-06] MEDS ORDERED: PENICILLIN G POTASSIUM IV 5 MU in D5W MINI-BAG PLUS 100 ML IV STA (06:48)
[2021-02-06] MEDS ORDERED: LACTATED RINGER'S 1000 ML IV STA (06:48)
--- NOTE | 2021-02-06 07:04 | HPEPDOC ---
Obstetrical History & Physical General Date of Admission 02/06/21 History of Present Illness 25-year-old G4, P0030 at 38+2 weeks gestation. Presents with frequent, painful uterine contractions over the past several hours and loss of fluid around 0400. Denies vaginal bleeding. Reports regular movement. ROS: no PATTERSON, cp, sob, fever/chills/nausea/vomiting. course: 1. 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 Anxiety 3. COVID-19+ at 23 weeks 4. 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 labs: Blood type O negative, antibody screen negative, HepBsAg neg, HIV neg, rubella immune, Hep C antibody negative, RPR nonreactive, CT/GC neg, urine culture negative, 1 hour glucose challenge test 113, GBS positive imaging: no anomalies or placental abnormalities Past Medical History Allergies Coded Allergies: bee venom protein (honey bee) (Verified Allergy, Mild, SWELLING/REDNESS, 12/24/20) Medications Scheduled No.137/Iron/Folic Acd ( Vitamin Tablet) 1 Each Tablet, 1 TAB PO DAILY Valacyclovir HCl (Valtrex) 500 Mg Tablet, 500 MG PO DAILY Physical Examination Physical Examination GENERAL: Alert and oriented times three. BREAST: . ABDOMEN: Gravid and non-tender to touch. FETUS: Is vertex (VTX) by sterile vaginal examination (SVE), fetus is vertex (VTX) by Ti. HEART RATE: Regular rate and rhythm. LUNGS: Clear to auscultation (CTA). EXTREMITIES: No edema. No clonus. Deep tendon reflexes (DTRs) +. Pelvic/SVE: 4cm, 100%, 0 station, grossly ruptured. No active HSV lesions EFM: Cat I [place]: ctxs every 2-5min Assessment/Plan Assessment 25yo at 38+2 weeks. Active labor at term, SROM. Reassuring maternal and status. Plan Admit and orient. Routine labs/orders Group B Streptococcus (GBS) positive. GBS prophylaxis with penicillin Augment labor with Pitocin as needed Mode of delivery plan: ; as indicated. DAVION VALERA DO Feb 06, 2021 07:04
[2021-02-06 07:25] LABS: HEMATOCRIT 40.4 % (36.0-47.0); HEMOGLOBIN 14.1 g/dl (12.0-15.5); MEAN CORPUSCULAR HEMOGLOBIN 29.7 pg (27.0-33.0); MEAN CORPUSCULAR HGB CONC 34.9 g/dl (32.0-36.5); MEAN CORPUSCULAR VOLUME 85.1 fl (80.0-96.0); PLATELET COUNT, AUTOMATED 221 10^3/uL (150-450); RED BLOOD COUNT 4.75 10^6/uL (4.00-5.40); WHITE BLOOD COUNT 13.6 10^3/uL (4.0-10.0)
[2021-02-06] MEDS ORDERED: FENTANYL 2MCG/ML ROPIVACAINE 0.2% IN 0.9% NACL 100ML IVBAG As Ordered ONE (08:29)
[2021-02-06] MEDS ORDERED: NALOXONE INJ 0.4MG/1ML VIAL (J2310 PER 1MG) IV PRN (08:40)
[2021-02-06] MEDS ORDERED: EPIDURAL COMMENT XX SCH (08:40)
[2021-02-06] MEDS ORDERED: diphenhydrAMINE 50MG/ML VIAL (J1200) IV PRN (08:40)
[2021-02-06] MEDS ORDERED: EPIDURAL/PCA KEYS XX PRN (08:40)
[2021-02-06] MEDS ORDERED: REFRIGERATOR IV KEYS XX PRN (08:40)
[2021-02-06] MEDS ORDERED: LACTATED RINGER'S 1000 ML IV PRN (08:40)
[2021-02-06] MEDS: FENTANYL/ROPIVACAINE/NACL BAG 100 ML EPIDURAL SCH ×2 (09:01→15:44)
[2021-02-06] MEDS: LR 1,000 ML IV SCH ×2 (09:01→15:44)
[2021-02-06] MEDS: ONDANSETRON 4MG/2ML VIAL IV PRN ×2 (09:36→16:40)
[2021-02-06] MEDS ORDERED: LR 1,000 ML IV SCH (10:18)
[2021-02-06] MEDS ORDERED: OXYTOCIN DRIP 30 UNITS in IV 1 EA IV SCH ×2 (10:20→17:54)
[2021-02-06] MEDS: ePHEDrine SULFATE 25 MG/5 ML(5MG/ML) SYRINGE IV PRN ×3 (10:26→10:32)
[2021-02-06] MEDS: PENICILLIN G POTASSIUM IV 2.5 MU in IV 1 EA IV SCH ×2 (12:04→16:17)
[2021-02-06] MEDS ORDERED: ANUSOL HC CREAM 30GM TOP PRN (17:55)
[2021-02-06] MEDS ORDERED: ACETAMINOPHEN TAB 650MG DOSE (2X325MG) PO PRN (17:55)
[2021-02-06] MEDS ORDERED: DOCUSATE SODIUM 100MG CAPSULE PO PRN (17:55)
[2021-02-06] MEDS ORDERED: METHYLERGONOVINE MALEATE 0.2 MG TAB PO PRN (17:55)
[2021-02-06] MEDS ORDERED: MEASLES,MUMPS,RUBELLA VACCINE INJ (MMR-II) (90707) SC SCH (17:55)
[2021-02-06] MEDS ORDERED: IBUPROFEN 600MG TAB PO PRN (17:55)
[2021-02-06] MEDS ORDERED: RHOGAM 300 MCG (1500 IU) INJ (J2790) IM SCH (17:55)
--- NOTE | 2021-02-06 22:20 | DN ---
DELIVERY NOTE DATE OF DELIVERY: 02/06/2021 TIME OF : 1732 GENDER: Male APGARS: 9 and 9 LACERATIONS: Bilateral labial lacerations. ANESTHESIA: ESTIMATED BLOOD LOSS: 350 mL. COUNTS: Correct and verified. DESCRIPTION OF DELIVERY: Jackie is a 25-year-old 4, para 1, 0, 3, 1 now, who was admitted to labor and delivery in active labor. She utilized an epidural for her labor coping. She did have her labor augmented with I.V. Pitocin. She reached complete dilation at 1650. She pushed to a normal spontaneous vaginal delivery of a live male infant in OA position with restitution to ROT position at 1732. There was no nuchal cord. The shoulders delivered with gentle downward traction and the corpus immediately followed. The male was placed on the maternal abdomen crying and active. His mouth and nares were bulb suctioned. The cord was clamped x2 once pulsations ceased and cut by the father of the baby under my direction. Cord blood was obtained. Spontaneous expulsion of an intact placenta with three-vessel cord by Hutchinson mechanism was at 1739. Uterine hemostasis achieved with IV Pitocin rapid infusion and uterine fundal massage. Estimated blood loss 350 mL. Perineum and vagina inspected and noted to have bilateral labial lacerations. The lacerations were repaired with 3-0 Vicryl Rapide in the usual fashion. The male's weight is pending. His Apgars are 9 and 9. Family have named their son, Lj, and the mom is going to breastfeed. At the close of delivery lap counts, needle counts, and instrument counts were correct and verified.
[2021-02-06] MEDS: DIBUCAINE 1% OINTMENT 30GM TOP PRN (23:56)
[2021-02-06] MEDS: ACETAMINOPHEN 500 MG TAB PO PRN (23:56)
[2021-02-07 06:10] VITALS: BP 121/69
[2021-02-07] MEDS: IBUPROFEN 800 MG TAB PO PRN (07:21)
[2021-02-07 08:45] VITALS: BP 106/61
[2021-02-07] MEDS: PRENATAL VITAMINS CHEWABLE TABLET PO SCH (10:13)
[2021-02-07] MEDS: ACETAMINOPHEN 500 MG TAB PO PRN ×2 (12:27→21:18)
[2021-02-07 18:00] VITALS: BP 120/60
[2021-02-08 06:00] VITALS: BP 132/70
[2021-02-08] MEDS: DIBUCAINE 1% OINTMENT 30GM TOP PRN (08:11)
[2021-02-08] MEDS: IBUPROFEN 800 MG TAB PO PRN (08:11)
[2021-02-08] MEDS: PRENATAL VITAMINS CHEWABLE TABLET PO SCH (08:11)
== END 2021-02-08 13:55 | disposition home or self-care (01) | DRG 560 ==
LOC: M LDO 05:31 → M LDI 06:58 → M OBS 21:05
PROVIDERS: ADMIT Obstetrics & Gynecology; ATTEND Obstetrics & Gynecology
PROC: 10E0XZZ Delivery of Products of Conception, External Approach (ICD-10-PCS; principal; 2021-02-06)
PROC: 0HQ9XZZ Repair Perineum Skin, External Approach (ICD-10-PCS; 2021-02-06)
DX: O70.0 First degree perineal laceration during delivery (principal); Z3A.38 38 weeks gestation of pregnancy; Z37.0 Single live birth; Z86.16 Personal history of COVID-19

== ENCOUNTER → 2022-03-04 | Outpatient (REF) | payer BC ==
[~2022-03-04] MED LIST changes: +GABA-283 PO; -GABA-845 PO; +VALT500T PO
[2022-03-04 17:55] LABS: APPEARANCE, URINE HAZY (CLEAR); BACTERIA, URINE AUTO NEGATIVE (NEGATIVE); BILIRUBIN, URINE AUTO NEGATIVE (NEGATIVE); BLOOD, URINE BLOOD NEGATIVE (NEGATIVE); COLOR, URINE YELLOW (YELLOW); GLUCOSE, URINE (UA) AUTO NEGATIVE (NEGATIVE); KETONE, URINE AUTO TRACE mg/dL (NEGATIVE); LEUKOCYTE ESTERASE, URINE AUTO 3+ (NEGATIVE); MUCUS, URINE SMALL (NEGATIVE); NITRITE, URINE AUTO NEGATIVE (NEGATIVE); PROTEIN, URINE AUTO NEGATIVE (NEGATIVE); RBC, URINE AUTO 0 /HPF (0-3); SPECIFIC GRAVITY URINE AUTO 1.021 (1.002-1.035); SQUAMOUS EPITHELIAL CELL UR AU 9 /HPF (0-6); UROBILINOGEN, URINE AUTO 0.2 mg/dL (0.0-2.0); WBC, URINE AUTO 9 /HPF (0-3)
== END ==
LOC: M LAB REF 17:06
PROVIDERS: ATTEND Nurse Practitioner Adult Health
DX: R30.0 Dysuria (principal)

== ENCOUNTER → 2023-06-23 | Outpatient (CLI) | payer OTHER ==
[~2023-06-23] MED LIST changes: +ETON1VAG7 EC; +ETON68IM SC; -NEXP1IMP SC; -NUVAMIS2 EC
[2023-06-23 17:55] LABS: BASO # 0.1 10^3/uL (0.0-0.2); BASO % 1.3 % (0.0-1.0); EOS # 0.1 10^3/uL (0.0-0.5); EOS % 1.6 % (0.0-3.0); LYMPH # 3.2 10^3/uL (1.5-5.0); LYMPH % 39.9 % (24.0-44.0); MEAN CORPUSCULAR HEMOGLOBIN 29.8 pg (27.0-33.0); MEAN CORPUSCULAR HGB CONC 33.3 g/dl (32.0-36.5); MEAN CORPUSCULAR VOLUME 89.5 fl (80.0-96.0); MONO # 0.8 10^3/uL (0.0-0.8); MONO % 9.4 % (2.0-8.0); NEUTROPHILS # 3.8 10^3/uL (1.5-8.5); NEUTROPHILS % 47.3 % (36.0-66.0); PLATELET COUNT, AUTOMATED 237 10^3/uL (150-450); RED BLOOD COUNT 5.03 10^6/uL (4.00-5.40)
== END ==
LOC: M WUC 12:54
PROVIDERS: ATTEND Family Medicine
DX: D75.1 Secondary polycythemia (principal); K31.84 Gastroparesis; G90.50 Complex regional pain syndrome I, unspecified

== ENCOUNTER → 2023-07-21 | Outpatient (CLI) | payer OTHER ==
[~2023-07-21] MED LIST changes: -GABA-283 PO; +GABA-284 PO
== END ==
LOC: M PLAIMG 12:15
PROVIDERS: ATTEND Physician Assistant
DX: R55 Syncope and collapse (principal); M50.221 Other cervical disc displacement at C4-C5 level; M50.222 Other cervical disc displacement at C5-C6 level; M50.223 Other cervical disc displacement at C6-C7 level

== ENCOUNTER → 2024-04-22 | Outpatient (CLI) | payer OTHER ==
[~2024-04-22] MED LIST changes: -DIAZ1CON PO; +DIAZ5ORA PO; +GASTROGRAFIN SOLUTION 30ML As Ordered ONE; +ISOVUE-370 76% 100ML VIAL As Ordered ONE
== END ==
LOC: M RAD 14:43
PROVIDERS: ATTEND Physician Assistant
DX: R93.3 Abnormal findings on diagnostic imaging of other parts of digestive tract (principal)
CPT/HCPCS: 74177; Q9963; Q9967

== ENCOUNTER → 2024-09-09 | Outpatient (REF) | payer OTHER ==
[~2024-09-09] MED LIST changes: +GABA-1635; -GABA800T4; -GASTROGRAFIN SOLUTION 30ML As Ordered ONE; -ISOVUE-370 76% 100ML VIAL As Ordered ONE
[2024-09-12 13:35] LABS: GC DNA AMPLIFICATION NEGATIVE (NEGATIVE)
== END ==
LOC: M SFHCWAGY 12:36
PROVIDERS: ATTEND Advanced Practice Midwife
DX: Z34.81 Encounter for supervision of other normal pregnancy, first trimester (principal)

== ENCOUNTER → 2024-09-20 | Outpatient (CLI) | payer OTHER ==
[2024-09-20 11:53] LABS: HEMATOCRIT 40.6 % (36.0-47.0); HEMOGLOBIN 13.7 g/dl (12.0-15.5); MEAN CORPUSCULAR HEMOGLOBIN 30.4 pg (27.0-33.0); MEAN CORPUSCULAR HGB CONC 33.7 g/dl (32.0-36.5); PLATELET COUNT, AUTOMATED 215 10^3/uL (150-450); RED BLOOD COUNT 4.51 10^6/uL (4.00-5.40); WHITE BLOOD COUNT 7.7 10^3/uL (4.0-10.0)
[2024-09-20 16:55] LABS: HIV 1&2 SCREEN NEGATIVE (NEGATIVE)
[2024-09-20 17:01] LABS: HEPATITIS C VIRUS ABY INDEX 0.06 INDEX (<0.8)
== END ==
LOC: M WUC 08:55
PROVIDERS: ATTEND Advanced Practice Midwife
DX: Z34.81 Encounter for supervision of other normal pregnancy, first trimester (principal)

== ENCOUNTER → 2024-10-14 | Outpatient (CLI) | payer OTHER ==
[2024-10-14 16:30] LABS: GC DNA AMPLIFICATION NEGATIVE (NEGATIVE)
== END ==
LOC: M PLALAB 13:37
PROVIDERS: ATTEND Obstetrics & Gynecology
DX: Z34.82 Encounter for supervision of other normal pregnancy, second trimester (principal)

== ENCOUNTER → 2024-11-08 | Outpatient (REF) | payer OTHER ==
[2024-11-08 16:34] LABS: Trichomonas vaginalis (AMP) NOT DETECTED (NEGATIVE)
[2024-11-08 16:57] LABS: GC DNA AMPLIFICATION NEGATIVE (NEGATIVE)
== END ==
LOC: M SFHCWAGY 14:47
PROVIDERS: ATTEND Nurse Practitioner Family
DX: Z34.82 Encounter for supervision of other normal pregnancy, second trimester (principal); R35.0 Frequency of micturition

== ENCOUNTER → 2024-11-21 | Outpatient (CLI) | payer OTHER | LOC: M WHC 07:57 | PROVIDERS: ATTEND Obstetrics & Gynecology | DX: Z34.82 Encounter for supervision of other normal pregnancy, second trimester (principal) ==

== ENCOUNTER 2024-12-21 12:34 | Outpatient (CLI) | payer OTHER ==
[~2024-12-21] VITALS: Ht 160 cm; Wt 70.4 kg
[2024-12-21 12:51] VITALS: BP 118/59
[2024-12-21] MEDS ORDERED: HOME MED LIST COMPLETE! XX SCH (12:55)
== END 2024-12-21 13:20 | disposition home or self-care (01) ==
LOC: M LDO 12:34
PROVIDERS: ATTEND Advanced Practice Midwife
DX: O26.892 Other specified pregnancy related conditions, second trimester (principal); O26.22 Pregnancy care for patient with recurrent pregnancy loss, second trimester; O99.342 Other mental disorders complicating pregnancy, second trimester; O98.512 Other viral diseases complicating pregnancy, second trimester; R10.2 Pelvic and perineal pain; F41.9 Anxiety disorder, unspecified; B00.9 Herpesviral infection, unspecified; Z3A.24 24 weeks gestation of pregnancy
CPT/HCPCS: 59025; G0463

== ENCOUNTER → 2025-01-05 | Outpatient (CLI) | payer OTHER ==
[2025-01-05 12:48] LABS: HEMATOCRIT 40.2 % (36.0-47.0); HEMOGLOBIN 13.7 g/dl (12.0-15.5); MEAN CORPUSCULAR HEMOGLOBIN 31.3 pg (27.0-33.0); MEAN CORPUSCULAR HGB CONC 34.1 g/dl (32.0-36.5); MEAN CORPUSCULAR VOLUME 91.8 fl (80.0-96.0); PLATELET COUNT, AUTOMATED 213 10^3/uL (150-450); RED BLOOD COUNT 4.38 10^6/uL (4.00-5.40); WHITE BLOOD COUNT 8.8 10^3/uL (4.0-10.0)
[2025-01-05 13:16] LABS: GLUCOSE CHALLENGE TEST 1 HOUR 90 MG/DL (LESS THAN 140)
[2025-01-05 13:43] LABS: HIV 1&2 SCREEN NEGATIVE (NEGATIVE)
[2025-01-05 13:50] LABS: HEPATITIS C VIRUS ABY INDEX 0.16 INDEX (<0.8)
[2025-01-05 14:06] LABS: GC DNA AMPLIFICATION NEGATIVE (NEGATIVE)
== END ==
LOC: M PLALAB 09:16
PROVIDERS: ATTEND Nurse Practitioner Family
DX: Z34.80 Encounter for supervision of other normal pregnancy, unspecified trimester (principal)
CPT/HCPCS: 36415; 82950; 85027; 86780; 86803; 86850; 86900; 86901; 87389; 87810; 87850; J2790

== ENCOUNTER → 2025-01-27 | Outpatient (REF) | payer OTHER ==
[2025-01-27 12:10] LABS: Trichomonas vaginalis (AMP) NOT DETECTED (NEGATIVE)
[2025-01-27 12:33] LABS: GC DNA AMPLIFICATION NEGATIVE (NEGATIVE)
== END ==
LOC: M SFHCWAGY 10:08
PROVIDERS: ATTEND Obstetrics & Gynecology
DX: Z34.93 Encounter for supervision of normal pregnancy, unspecified, third trimester (principal)

== ENCOUNTER 2025-03-13 16:56 | Emergency (ER) | payer OTHER ==
[2025-03-13 17:06] VITALS: TEMP 98.4
[2025-03-13 18:48] LABS: BASO % 0.4 % (0.0-1.0); EOS # 0.2 10^3/uL (0.0-0.5); EOS % 1.6 % (0.0-3.0); HEMOGLOBIN 13.3 g/dl (12.0-15.5); LYMPH # 2.4 10^3/uL (1.5-5.0); MEAN CORPUSCULAR HEMOGLOBIN 30.2 pg (27.0-33.0); MEAN CORPUSCULAR HGB CONC 34.1 g/dl (32.0-36.5); MEAN CORPUSCULAR VOLUME 88.6 fl (80.0-96.0); MONO # 0.8 10^3/uL (0.0-0.8); MONO % 7.3 % (2.0-8.0); NEUTROPHILS # 7.3 10^3/uL (1.5-8.5); NEUTROPHILS % 67.3 % (36.0-66.0); PLATELET COUNT, AUTOMATED 206 10^3/uL (150-450); WHITE BLOOD COUNT 10.8 10^3/uL (4.0-10.0)
[2025-03-13 19:06] LABS: CK-MB VALUE MASS < 1.0 NG/ML (<3.6)
[2025-03-13 19:08] LABS: BLOOD UREA NITROGEN 7 MG/DL (9-23); CALCIUM LEVEL 8.9 MG/DL (8.5-10.1); CARBON DIOXIDE LEVEL 24 MMOL/L (20-31); CHLORIDE LEVEL 104 MMOL/L (98-107); CPK CREATINE PHOSPHOKINASE 50 U/L (34-145); CREATININE FOR GFR 0.51 MG/DL (0.55-1.30); GLOMERULAR FILTRATION RATE > 90.0 (>60); GLUCOSE, FASTING 73 MG/DL (60-100); MAGNESIUM LEVEL 1.8 MG/DL (1.8-2.4); POTASSIUM SERUM 3.5 MMOL/L (3.5-5.1); SODIUM LEVEL 138 MMOL/L (136-145)
[2025-03-13 19:10] LABS: THYROID STIMULATING HORMONE 0.814 uIU/ML (0.55-4.78); THYROXINE (T4) 11.9 UG/DL (4.5-10.9)
[2025-03-13 19:11] LABS: FREE THYROXINE INDEX 2.3 % (1.3-4.8); T UPTAKE 19.5 % (22.5-37.0)
[2025-03-13 19:45] VITALS: BP 105/60; O2SAT 99
== END 2025-03-13 20:00 | disposition home or self-care (01) ==
LOC: M ED 16:56
DX: O99.413 Diseases of the circulatory system complicating pregnancy, third trimester (principal); R00.2 Palpitations; Z90.89 Acquired absence of other organs; Z91.030 Bee allergy status; Z79.899 Other long term (current) drug therapy; Z3A.35 35 weeks gestation of pregnancy

== ENCOUNTER → 2025-03-16 | Outpatient (REF) | payer OTHER | LOC: M PLALAB 15:08 | PROVIDERS: ATTEND Nurse Practitioner Family | DX: Z36.85 Encounter for antenatal screening for Streptococcus B (principal); Z3A.36 36 weeks gestation of pregnancy ==

== ENCOUNTER 2025-03-20 00:07 | Outpatient (CLI) | payer OTHER ==
[~2025-03-20] VITALS: Ht 160 cm; Wt 73.6 kg
[2025-03-20 00:36] VITALS: BP 113/53
[2025-03-20] MEDS: LR 800 ML IV SCH (01:33)
[2025-03-20 02:28] LABS: KETONE, URINE AUTO RFX NEGATIVE (NEGATIVE); LEUKOCYTE ESTERASE UR AUTO RFX NEGATIVE (NEGATIVE); MUCUS, URINE RFX SMALL (NEGATIVE); NITRITE, URINE AUTO RFX NEGATIVE (NEGATIVE); RBC, URINE AUTO RFX 0 /HPF (0-3); SQUAM EPITHELIAL CELL UR AURFX 3 /HPF (0-6); WBC, URINE AUTO RFX 1 /HPF (0-3)
[2025-03-20 03:56] VITALS: BP 115/64
== END 2025-03-20 04:50 | disposition home or self-care (01) ==
LOC: M LDO 00:07
PROVIDERS: ATTEND Obstetrics & Gynecology
DX: O47.03 False labor before 37 completed weeks of gestation, third trimester (principal); Z3A.36 36 weeks gestation of pregnancy; Z91.030 Bee allergy status
CPT/HCPCS: 59025; 81001; G0463